=== PATIENT | female | born 1955 | race Caucasian/White ===

== ENCOUNTER → 2019-10-31 | Outpatient (CLI) | payer OTHER ==
[2019-10-31 10:47] LABS: Basophils # (A) 0.1 k/uL (0-0.2); Basophils % (A) 1 %; Eosinophils # (A) 0.2 k/uL (0-0.7); Eosinophils % (A) 4 %; HCT 42.6 % (34.0-46.0); HGB 13.5 gm/dL (11.4-16.0); Lymphocytes # (A) 1.6 k/uL (1.0-4.8); Lymphocytes % (A) 27 %; MCH 27.9 pg (25.0-35.0); MCHC 31.7 g/dL (31.0-37.0); MCV 87.9 fL (80.0-100.0); Mean Platelet Volume 7.1; Monocytes # (A) 0.4 k/uL (0-1.0); Monocytes % (A) 7 %; Neutrophils # (A) 3.6 k/uL (1.3-7.7); Neutrophils % (A) 60 %; Platelet Count 309 k/uL (150-450); RBC 4.85 m/uL (3.80-5.40); RDW 13.1 % (11.5-15.5)
[2019-10-31 10:57] LABS: INR 0.9 (<1.2); Prothrombin Time 9.7 sec (9.0-12.0)
[2019-10-31 11:12] LABS: Potassium 4.2 mmol/L (3.5-5.1)
== END | disposition home or self-care (01) ==
LOC: LABPAT 10:11
PROVIDERS: ATTEND Orthopaedic Surgery
DX: Z01.812 Encounter for preprocedural laboratory examination (principal)
CPT/HCPCS: 36415; 80051; 85025; 85610; 87070

== ENCOUNTER 2019-11-13 09:26 | Day surgery (SDC) | payer OTHER ==
[2019-11-12 08:38] VITALS: BMI 36.5
--- NOTE | 2019-11-12 11:03 | HP ---
HISTORY AND PHYSICAL CHIEF COMPLAINT: Right knee pain. 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 She is having pain with prolonged weightbearing and she notes the knee gives out. She notes intermittent swelling and stiffness. She has tried medications and an injection with only partial temporary relief. She notes her pain does limit her normal function and activities. PAST MEDICAL HISTORY: Significant for arthritis, hypertension, and depression. PAST SURGICAL HISTORY: Negative. CURRENT MEDICATIONS: 1. Metoprolol. 2. Zolpidem. 3. Losartan. ALLERGIES: SHE HAS ALLERGIES TO DEMEROL. FAMILY HISTORY: Significant for cancer. SOCIAL HISTORY: Negative for current tobacco or alcohol use. REVIEW OF SYSTEMS: Sixteen point review of systems otherwise reviewed and is noncontributory. PHYSICAL EXAMINATION: On examination, the patient is approximately 5 foot 8, 240 pounds of endomorphic habitus. HEENT exam is nonfocal. NECK: Supple. He has painless passive motion of the right hip. Straight leg raise is negative. Active motion right knee -8 to 105 degrees of flexion. She has a moderate effusion. She is tender about the medial joint line. Collaterals are stable, Mika is negative, John's is equivocal. Her distal neurovascular appears intact in the right lower extremity. Weightbearing notch lateral and Merchant views of the right knee obtained in the office show severe medial compartment narrowing. IMPRESSION: 1. Right knee severe medial compartment osteoarthrosis. 2. Obesity. RECOMMENDATIONS: I talked to the patient at length regarding her condition along with treatment options. At this point, she remains quite symptomatic despite conservative measures. After thorough discussion, she opts to proceed with surgery. We will plan to proceed with right total knee arthroplasty. Risks and benefits were discussed at length in layman's terms. We will institute DVT prophylaxis postoperatively. MMODL / IJN: [id number] /
[~2019-11-13 09:26] MED LIST: ACETAMINOPHEN TAB 500 MG TAB PO ONE; DEXAMETHASONE SOD PHOSPHATE 10 MG/ML 1 ML VIAL IV ONE; HYDROmorphone 0.5 MG/0.5 ML SYRINGE IVP PRN; MELOXICAM 7.5 MG TAB PO ONE; MIDAZOLAM 2 MG/2 ML VIAL IV PRN; ONDANSETRON 4 MG/2 ML VIAL IVP ONE; SCOPOLAMINE 1.5MG/72HR PATCH TRANSDERM ONE; TRANEXAMIC ACID 1,000 MG in SODIUM CHLORIDE 0.9% 100 ML IVPB ONE
[2019-11-13] MEDS ORDERED: fentaNYL (PF) 50 MCG/ML 2 ML AMP IVP ONE (10:15)
[2019-11-13] MEDS: LACTATED RINGERS 1,000 ML IV SCH (10:15)
[2019-11-13] MEDS ORDERED: SODIUM CHLORIDE 0.9% 100 ML BAG ONE (10:37)
[2019-11-13] MEDS ORDERED: fentaNYL (PF) 50 MCG/ML 2 ML AMP ONE (10:37)
[2019-11-13] MEDS ORDERED: PROPOFOL 10 MG/ML 20 ML VIAL IV ONE (10:37)
[2019-11-13] MEDS ORDERED: MIDAZOLAM 2 MG/2 ML VIAL ONE (10:37)
[2019-11-13] MEDS ORDERED: diphenhydrAMINE 50 MG/ML 1 ML VIAL ONE (10:37)
[2019-11-13] MEDS ORDERED: TRANEXAMIC ACID 1,000 MG/10 ML VIAL ONE (10:37)
[2019-11-13] MEDS ORDERED: ROPIVACAINE 0.2%-NS ON-Q PUMP 1,090 MG, EMPTY PAIN BALL 1 EACH MISCELLANE PRN (11:14)
--- NOTE | 2019-11-13 11:16 | P.ANPRN ---
Procedure Note - Anesthesia - Nerve Block Performed Right Adductor Canal Infusion Time Out Performed: Yes Date of Procedure: 11/13/19 Procedure Start Time: 10:40 Location of Patient: PreOp Indication: Requested by Surgeon Specifically requested for management of pain by DrRanda: Mono Garcia Sedation Type: Sedate with meaningful contact maintained Preparation: Sterile Prep Position: Supine Catheter Depth at Skin (cm): 10 Catheter: Indwelling Needle Types: Pajunk Needle Gauge: 18 Ultrasound used to visualize needle placement: Yes Ultrasound used to observe medication spread: Yes Injectate: 0.5% Ropivacaine (see comment for volume) (20 cc) Blood Aspirated: No Pain Paresthesia on Injection Noted: No Resistance on Injection: Normal Image Stored and Saved: Yes Events: Uneventful and Well Tolerated
[2019-11-13] MEDS: ROPIVACAINE 246.25 MG, EPINEPHrine 0.5 MG, KETOROLAC 30 MG, cloNIDine HCL/PF 80 MCG, WA... MISCELLANE ONE ×10 (11:21→11:35)
[2019-11-13] MEDS ORDERED: LACTATED RINGERS 1,000 ML IV ONE (11:34)
[2019-11-13] MEDS ORDERED: MAGNESIUM HYDROXIDE 2,400 MG/10 ML CUP PO PRN (12:26)
[2019-11-13] MEDS ORDERED: traMADol 50 MG TAB PO PRN (12:26)
[2019-11-13] MEDS ORDERED: ACETAMINOPHEN TAB 325 MG TAB PO PRN (12:26)
[2019-11-13] MEDS ORDERED: NALOXONE 0.4 MG/ML 1 ML VIAL IV PRN (12:26)
[2019-11-13] MEDS ORDERED: HYDROcodone/APAP 7.5-325MG 1 EACH TAB PO PRN ×2 (12:26→12:28)
[2019-11-13] MEDS ORDERED: ONDANSETRON 4 MG/2 ML VIAL IVP PRN (12:26)
--- NOTE | 2019-11-13 12:51 | P.OP ---
Date of Procedure: 11/13/19 Preoperative Diagnosis: Right knee severe tricompartmental osteoarthrosis Postoperative Diagnosis: Same Procedure(s) Performed: Right total knee arthroplastycementedcruciate retaining Implants: Depuy Attune size 6 narrow cemented femoral component, size 5 cemented tibial component, 9 mm articular surface, 35 mm parapatellar component. This was a cruciate retaining implant. Anesthesia: regional, local, spinal Surgeon: Mono Garcia Meeting Manager #1: Mikhail Valdes Estimated Blood Loss (ml): 50 Pathology: other (Bone fragments) Condition: stable Disposition: PACU Indications for Procedure: The patient's a 64-year-old female who presents with progressive right knee pain secondary to osteoarthrosis despite conservative measures. A discussion of the risks and benefits of operative intervention versus continued conservative measures was made with the patient. She opted to proceed with surgery. Operative risks to include infection, fracture, component loosening, neurovascular injury, DVT, component failure need for subsequent procedures was discussed. Informed consent was obtained. Operative Findings: As below Description of Procedure: The patient was brought to the operating room, and after induction of spinal anesthesia the right lower extremity was prepped and draped in a normal fashion. The tourniquet was inflated to 270 mmHg. A longitudinal incision extending 3 finger breaths above the superior pole of the patella extending to the medial aspect the tibial tubercle was then made. The skin and subcutaneous tissues were divided sharply. Electrocautery was used for hemostasis. A medial parapatellar arthrotomy was then performed. The medial soft tissues to include the superficial and deep portions of the medial collateral ligament as well as the medial hamstring tendons were elevated subperiosteally. The proximal medial tibia osteophytes were carefully removed. The patella was everted. The knee was flexed. A portion of the retropatellar fat pad was excised sharply. The anterior cruciate ligament was sacrificed. A starting hole was made in the distal femur 1 cm anterior to the posterior cruciate origin. An intramedullary femoral guide was gently inserted planning on 5 valgus distal cut with 9 mm distal resection. The cutting block was pinned in place. The distal cut was then made. The posterior referencing sizing guide was utilized. 3 of external rotation was built into the system and verified off the trans- epicondylar axis and the posterior condyles. I felt size 6 narrow was most appropriate. The cutting block was pinned in place. The anterior, posterior, and chamfer cuts were then made. The bone fragments were removed. A sulcus cut was then made with the appropriate guide. The trial size 6 narrow femoral component was then placed and was fully seated. There was good anterior to posterior and medial to lateral fit. The distal peg holes were then drilled. The trial component was then removed. Attention was then paid towards preparing the proximal tibia. An extra medullary guide was utilized in line with the tibial shaft and second metatarsal distally. A 7 posterior slope was planned. I planned on 2 mm resection from the medial compartment. The cutting block was pinned in place. The proximal tibial cut was then made. The bone was removed in one fragment. The remnants of the medial and lateral menisci were excised the capsule junction with electrocautery. The tibia sized most appropriately at size 5. The posterior osteophytes off the distal femur were carefully removed with a curved osteotome. The trial tibial and femoral components were placed along with a 9 millimeter articular surface. I was able to obtain full flexion and extension with good stability with varus and valgus stress. After several flexion and extension cycles, the tibial rotation was marked with electrocautery in line with the medial one third of the tibial tubercle. Attention was then paid towards preparing the patella. A patella reamer was utilized taking this down to 14 mm of bone stock. A good flush cut was made. The patella sized most appropriately at 35 millimeters. The peg holes were then drilled. The trial component was placed. The knee was taken through a range of motion. I had good patellofemoral tracking with no hands technique. The trial components were then removed. The tibia was prepared in the appropriate rotation with appropriate drill and keel punch. The flexion and extension gaps were checked and felt to be symmetric. The posterior soft tissues were injected with ropivacaine. The bony surfaces were prepared with pulsatile lavage and dried. The deep tibial component was then cemented in place and was fully seated. Excess cement was removed. The femoral component was cemented in place and was fully seated. Again excess cement was removed. The trial 9 millimeters surface was then inserted in the knee was put in full extension. The patella component was cemented in place. After the cement had sufficiently hardened, the knee was again taken through a range of motion. Again there was good stability in flexion and extension with varus and valgus stress. The trial articular surface was then removed. The final articular surface was placed and was impacted. Care was taken to avoid any soft tissue interposition. Pulsatile lavage was again utilized. The tourniquet was deflated with approximately 60 minutes total tourniquet time. There was minimal drainage therefore a deep drain was not placed. The medial parapatellar arthrotomy was then closed with #2 Ethibond suture. The subcutaneous tissues were reapproximated interrupted 2- 0 Vicryl sutures. The skin was reapproximated with 3-0 subarticular strata fix suture. Skin tape and adhesive was applied. A sterile dressing was applied. The patient was then awoken from sedation and transferred to recovery room in good condition. Blood loss was estimated at[] milliliters. No complications were incurred. Sponge and needle counts were correct at the end the case. Howard CASTILLO assisted during the major components this case to include exposure, bone resection, and implantation.
--- NOTE | 2019-11-13 13:16 | XR ---
EXAMINATION TYPE: XR knee limited RT DATE OF EXAM: 11/13/2019 COMPARISON: NONE HISTORY: 64-year-old female evaluation for postoperative abnormality and alignment TECHNIQUE: 2 views FINDINGS: Images show placement of right total knee arthroplasty. 2 distal femoral and proximal tibial componen ts of the prosthesis are well seated without periprosthetic fracture. Alignment grossly anatomic. Ant erior soft tissue swelling with scattered soft tissue air as well as intra-articular air compatible w ith recent operation. IMPRESSION: Uncomplicated postoperative appearance right total knee arthroplasty.
[2019-11-13] MEDS: HYDROmorphone 0.5 MG/0.5 ML SYRINGE IVP PRN ×2 (13:24→13:39)
[2019-11-13] MEDS ORDERED: ZOLPIDEM 5 MG TAB PO PRN (18:51)
[2019-11-13] MEDS ORDERED: SENNOSIDES-DOCUSATE SODIUM 1 EACH TAB PO SCH (21:00)
[2019-11-14] MEDS: LACTATED RINGERS 1,000 ML IV SCH (01:24)
[2019-11-14 07:06] VITALS: BP 129/80; PULSE 66; RESP 16; TEMP 97.8
[2019-11-14 08:17] LABS: Basophils % (A) 0 %; Eosinophils % (A) 0 %; HCT 35.7 % (34.0-46.0); HGB 11.4 gm/dL (11.4-16.0); Lymphocytes # (A) 1.1 k/uL (1.0-4.8); Lymphocytes % (A) 11 %; MCH 27.9 pg (25.0-35.0); MCV 87.1 fL (80.0-100.0); Mean Platelet Volume 7.4; Monocytes # (A) 0.6 k/uL (0-1.0); Monocytes % (A) 7 %; Neutrophils # (A) 7.4 k/uL (1.3-7.7); Neutrophils % (A) 80 %; Platelet Count 205 k/uL (150-450); RBC 4.09 m/uL (3.80-5.40); RDW 12.9 % (11.5-15.5); WBC 9.2 k/uL (3.8-10.6)
[2019-11-14] MEDS ORDERED: RIVAROXABAN 10 MG TAB PO SCH (09:00)
--- NOTE | 2019-11-14 10:37 | P.PN ---
Subjective Progress Note Date: 11/14/19 Principal diagnosis: status post right total knee arthroplasty Patient evaluated at bedside, she's resting in her hospital chair. Currently denies any chest pain or shortness of breath. She's ambulate well with therapy, she has not done discharge. Objective - Vital Signs Vital signs: Vital Signs Temp 97.8 F 11/14/19 07:00 Pulse 66 11/14/19 07:30 Resp 16 11/14/19 07:30 BP 129/80 11/14/19 07:00 Pulse Ox 96 11/14/19 07:00 Intake & Output 11/13/19 11/14/19 11/14/19 18:59 06:59 18:59 Intake Total 1600 350 Output Total 50 Balance 1550 350 Weight 110 kg Intake: IV 1600 Intake, IV Titration 350 Amount Lactated Ringers 1,000 ml 300 @ 50 mls/hr IV .Q20H DEE DEE Rx#:[id number] ceFAZolin 2 gm In Sodium 50 Chloride 0.9% 50 ml @ 100 mls/hr IVPB Q8H DEE DEE Rx#: [id number] Output: Estimated Blood Loss 50 Other: Voiding Method Toilet Toilet Toilet # Voids 1 - Exam Right lower extremity: Incision is clean, dry, and intact. The exofin fusion tape is in good condition. There is minimal soft tissue swelling and ecchymosis surrounding the medial and lateral aspects of the incision. Calf is soft, no tenderness with palpation. Plantar flexion, dorsiflexion, EHL, FHL are intact. Sensory exam to light touch throughout the extremity is intact, dorsal pedis pulses 2+. - Labs CBC & Chem 7: 11/14/19 07:11 Assessment and Plan Plan: Assessment: Postop day #1 status post right total knee arthroplasty Plan: Pain control, continue on oral medication, plan for discharge home on likely [place] and tramadol GI and DVT prophylaxis, Eliquis 2.5mg bid for 1 month Wound care instructions discussed Home physical therapy and nursing after discharge Medical recommendations Hopeful discharge home today Time with Patient: Less than 30
--- NOTE | 2019-11-14 12:39 | P.DS ---
Providers Date of admission: 11/13/2019 Expected date of discharge: 11/14/19 Attending physician: Mono Garcia Consults: 11/13/19 12:26 Consult Physician Routine Consulting Provider: Saulo Larsen Reason/Comments: medical management Do you want consulting provider notified?: Yes Primary care physician: Saulo Larsen Hospital Course: Date of admission: 11/13/2019 Date of discharge: 11/14/2019 Admission diagnosis: Status post right total knee arthroplasty Discharge diagnosis: Same Attending physician: Dr. Garcia Surgical procedures: Right total knee arthroplasty Brief history: Patient is a 64-year-old female with a history of with progressive primary right knee osteoarthritis. At this point patient has failed conservative treatment measures and has opted to proceed with a elective right total knee arthroplasty. Hospital course: Details of patient's surgery can be found in operative report. Patient tolerated the procedure well and was subsequently transported to orthopedic floor. Patient's orthopeidc and medical care was provided daily. Patient had daily laboratory tests performed for evaluation of overall blood counts. Patient had daily physical therapy to include strengthening range of motion as well as education with walker ambulation. Patient had daily CPM usage as part of their physical therapy program. Patient was treated with Xarelto for their postoperative DVT prophylaxis during their inpatient stay. Patient was noted to have a relatively uneventful postoperative course. Patient reported satisfactory pain control with oral pain medications by postoperative day 0. Patient showed satisfactory progress with physical therapy. Patient moved steadily through the program and had no difficulty meeting the goals by postoperative day 1. Given patient's otherwise satisfactory course and having met physical therapy goals, plan is to discharge patient home on postoperative day 1. Discharge condition/disposition: Patient will be discharged home in stable condition. Discharge medications: Instructions are given on resumption of patient's normal daily medications per primary care recommendation, in addition patient will be p rescribed [place] 7.5 mg/325 mg, tramadol 50 mg, Colace 100 mg, Eliquis 2.5mg. Discharge instructions: 1. Wound care and infection precautions, keep incision dry and covered while showering, no lotions, creams, moisturizers. No soaking, tubs, pools, hottubs. Do not scrub over the incision. 2. Weight-bear as tolerated with walker / cane until follow-up. 3. Ice and elevate when necessary. Do not exceed 20 minutes per hour with ice pack. 4. Utilize compression sleeve until seen at first follow up appointment. 5. Visiting nursing care. 6. Home physical therapy including home CPM. 7. Pain meds and anticoagulants per prescription. 8. Pain medication has potential to cause constipation. Increase oral fluid and fiber intake. Contact primary care provider if you have not had a bowel movement within 48 hours after discharge 9. No anti-inflammatory medication until discussed at first post operative visit, this including Motrin, Aleve, Mobic, Diclofenac. 10. Follow up in office at 2 weeks postop with Howard Valdes PA-C 11. Follow up with your primary care doctor 7-10 days after discharge. 12. Contact [facility] with any questions, . Procedures: right total knee arthroplasty Patient Condition at Discharge: Good Plan - Discharge Summary Discharge Rx Participant: Yes New Discharge Prescriptions: New Docusate [Colace] 100 mg PO DAILY #30 capsule Apixaban [Eliquis] 2.5 mg PO BID #60 tab HYDROcodone/APAP 7.5-325MG [[place] 7.5] 1 - 2 each PO Q6HR PRN #56 tab PRN Reason: Pain traMADol HCl [Ultram] 50 mg PO Q6H PRN #28 tab PRN Reason: Pain No Action Metoprolol Succinate (ER) [Toprol XL] 50 mg PO DAILY amLODIPine BESYLATE 5 mg PO BID Hydrochlorothiazide [Hydrodiuril] 12.5 mg PO DAILY Cholecalciferol [Vitamin D3 (25 Mcg = 1000 Iu)] 2,000 unit PO DAILY Magnesium Oxide [Mag-Ox] 400 mg PO DAILY Losartan Potassium [Cozaar] 100 mg PO DAILY Citalopram Hydrobromide [Citalopram HBr] 40 tab PO DAILY Zolpidem [Ambien] 5 mg PO HS PRN PRN Reason: Insomnia Discharge Medication List Metoprolol Succinate (ER) [Toprol XL] 50 mg PO DAILY 02/18/16 [History] Cholecalciferol [Vitamin D3 (25 Mcg = 1000 Iu)] 2,000 unit PO DAILY 11/12/19 [History] Hydrochlorothiazide [Hydrodiuril] 12.5 mg PO DAILY 11/12/19 [History] Losartan Potassium [Cozaar] 100 mg PO DAILY 11/12/19 [History] Magnesium Oxide [Mag-Ox] 400 mg PO DAILY 11/12/19 [History] amLODIPine BESYLATE 5 mg PO BID 11/12/19 [History] Citalopram Hydrobromide [Citalopram HBr] 40 tab PO DAILY 11/13/19 [History] Zolpidem [Ambien] 5 mg PO HS PRN 11/13/19 [History] Apixaban [Eliquis] 2.5 mg PO BID #60 tab 11/14/19 [Rx] Docusate [Colace] 100 mg PO DAILY #30 capsule 11/14/19 [Rx] HYDROcodone/APAP 7.5-325MG [[place] 7.5] 1 - 2 each PO Q6HR PRN #56 tab 11/14/19 [Rx] traMADol HCl [Ultram] 50 mg PO Q6H PRN #28 tab 11/14/19 [Rx] Follow up Appointment(s)/Referral(s): [facility],Equipment [NON-STAFF] - As Needed (walker and Continuous Passive Motion knee machine) [facility], [NON-STAFF] - As Needed Mikhail Valdes PAC [PHYSICIAN TRUCK LOADER] - 11/28/19 3:30 pm Activity/Diet/Wound Care/Special Instructions: Orthopedic Discharge Instructions: 1. Wound care and infection precautions, keep incision dry and covered while showering, no lotions, creams, moisturizers. No soaking, pools, hot tubs. Do not scrub over incision. 2. Weight-bear as tolerated with walker / cane until follow-up. 3. Ice and elevate when necessary. Do not exceed 20 minutes per hour with ice pack. 4. Utilize compression sleeve until seen at first follow up appointment. 5. Pain meds and anticoagulants per prescription. 6. Pain medication has potential to cause constipation. Increase oral fluid and fiber intake. Contact primary care provider if you have not had a bowel movement within 48 hours after discharge. 7. No anti-inflammatory medication until discussed at first post operative visit, this including Motrin, Aleve, Mobic, Diclofenac. 8. Follow up in office at 2 weeks postop with Howard Valdes PA-C 9. Follow up with your primary care doctor 7-10 days after discharge. 10. Contact [facility] with any questions, . Discharge Disposition: HOME WITH HOME HEALTH SERVICES
--- NOTE | 2019-11-14 12:56 | P.PN ---
Progress Note - Text Anesthesia POD 1. 06. Patient is status post right TKR under spinal anesthesia with a right adductor canal catheter placed for postoperative pain relief. With ropivacaine 0.2% running at 8 cc's per hour, the patient's VAS is (1, 3). Catheter site is clean dry and intact.
--- NOTE | 2019-11-14 14:22 | P.CONS ---
History of Present Illness - Reason for Consult Consult date: 11/14/19 Medical management - History of Present Illness This is a 64-year-old female patient of Dr. Larsen with his history of hypertension, obstructive sleep apnea, osteoarthritis. Patient has been brought in under the care of Dr. Garcia status post right total knee arthroplasty, postoperative day #1. Patient has had no postop complications. She is on eliquis for DVT prophylaxis. Patient denies having any nausea or vomiting. She is passing gas without bowel movement she is anticipating discharge home later today. Review of Systems Constitutional: Denies chills, Denies fatigue, Denies fever, Denies lethargy, Denies malaise, Denies poor appetite, Denies weakness Eyes: denies blurred vision, denies pain Ears, nose, mouth and throat: Denies dysphagia, Denies headache, Denies nasal congestion, Denies nasal discharge, Denies sore throat, Denies vertigo Cardiovascular: Denies chest pain, Denies dyspnea on exertion, Denies irregular heart beat, Denies leg edema, Denies lightheadedness, Denies shortness of breath, Denies syncope Respiratory: Denies cough, Denies cough with sputum, Denies dyspnea, Denies excessive sputum, Denies hemoptysis, Denies home oxygen, Denies wheezing Gastrointestinal: Denies abdominal pain, Denies constipation, Denies diarrhea, Denies nausea, Denies vomiting Genitourinary: Denies dysuria, Denies hematuria, Denies urgency, Denies urinary frequency Musculoskeletal: Denies frequent falls, Denies gait dysfunction, Denies muscle weakness, Denies myalgias Integumentary: Denies pruritus, Denies rash Neurological: Denies change in mentation, Denies change in speech, Denies gait dysfunction, Denies numbness, Denies weakness Psychiatric: Denies anxiety, Denies depression Endocrine: Denies fatigue, Denies weight change Past Medical History Past Medical History: Cancer, Chest Pain / Angina, Hypertension, Osteoarthritis (OA), Sleep Apnea/CPAP/BIPAP Additional Past Medical History / Comment(s): HX SKIN CANCER, SLEEP APNEA-IN PROCESS OF GETTING MACHINE., OCCASIONAL BOILS IN VAGINAL AREA. History of Any Multi-Drug Resistant Organisms: None Reported Past Surgical History: Heart Catheterization, Tubal Ligation Additional Past Surgical History / Comment(s): laparoscopy Past Anesthesia/Blood Transfusion Reactions: No Reported Reaction, Family History of Problems w/ Anesthesia Additional Past Anesthesia/Blood Transfusion Reaction / Comm: FATHER HAS HALLUCINATIONS Past Psychological History: Anxiety, Depression Smoking Status: Never smoker Past Alcohol Use History: Rare Additional Past Alcohol Use History / Comment(s): Patient is a lifelong nonsmoker, no illicit drug use, occasional alcohol use. 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 Past Drug Use History: None Reported - Past Family History Mother Family Medical History: No Reported History Additional Family Medical History / Comment(s): Mother is alive at age 84 with history of hypertension. Brother(s) Family Medical History: Cancer Additional Family Medical History / Comment(s): Patient has 3 brothers and one at age 58 from bladder cancer. Father Additional Family Medical History / Comment(s): Father is alive at age 89 with history of coronary artery disease, hypertension, aortic valve replacement, COPD Sister(s) Additional Family Medical History / Comment(s): Patient has 2 sisters with no major medical problems. Patient is one son and one daughter with no major medical problems. Medications and Allergies Home Medications Medication Instructions Recorded Confirmed Type Metoprolol Succinate (ER) [Toprol 50 mg PO DAILY 02/18/16 11/13/19 History XL] Cholecalciferol [Vitamin D3 (25 2,000 unit PO DAILY 11/12/19 11/12/19 History Mcg = 1000 Iu)] Hydrochlorothiazide [Hydrodiuril] 12.5 mg PO DAILY 11/12/19 11/12/19 History Losartan Potassium [Cozaar] 100 mg PO DAILY 11/12/19 11/13/19 History Magnesium Oxide [Mag-Ox] 400 mg PO DAILY 11/12/19 11/12/19 History amLODIPine BESYLATE 5 mg PO BID 11/12/19 11/13/19 History Citalopram Hydrobromide 40 tab PO DAILY 11/13/19 11/13/19 History [Citalopram HBr] Zolpidem [Ambien] 5 mg PO HS PRN 11/13/19 11/13/19 History Apixaban [Eliquis] 2.5 mg PO BID #60 tab 11/14/19 Rx Docusate [Colace] 100 mg PO DAILY #30 capsule 11/14/19 Rx HYDROcodone/APAP 7.5-325MG [Yellow Jacket 1 - 2 each PO Q6HR PRN #56 tab 11/14/19 Rx 7.5] traMADol HCl [Ultram] 50 mg PO Q6H PRN #28 tab 11/14/19 Rx Allergies Allergy/AdvReac Type Severity Reaction Status Date / Time meperidine HCl [From Demerol] AdvReac Nausea & Verified 11/12/19 08:08 Vomiting Physical Exam Vitals: Vital Signs Temp Pulse Resp BP Pulse Ox 11/14/19 07:30 66 16 11/14/19 07:00 97.8 F 66 16 129/80 96 11/14/19 02:51 98.1 F 71 17 128/79 96 11/14/19 00:00 18 11/13/19 18:47 98.3 F 68 18 115/70 92 L 11/13/19 15:30 16 11/13/19 15:00 97.8 F 78 16 110/73 92 L 11/13/19 14:55 75 111/70 91 L 11/13/19 14:40 77 113/73 94 L 11/13/19 14:25 97.8 F 78 16 110/73 92 L 11/13/19 14:01 16 110/73 93 L 11/13/19 13:50 80 16 109/55 94 L 11/13/19 13:35 81 16 123/63 94 L 11/13/19 13:20 79 16 127/61 92 L 11/13/19 13:05 81 16 127/60 98 11/13/19 12:50 83 16 142/68 95 11/13/19 10:00 98.0 F 96 16 148/67 93 L Intake and Output 11/13/19 11/14/19 11/14/19 22:59 06:59 14:59 Intake Total 350 Balance 350 Intake: Intake, IV Titration 350 Amount Lactated Ringers 1,000 ml 300 @ 50 mls/hr IV .Q20H [facility] Rx#:[id number] ceFAZolin 2 gm In Sodium 50 Chloride 0.9% 50 ml @ 100 mls/hr IVPB Q8H [facility] Rx#: [id number] Other: Voiding Method Toilet Toilet Toilet # Voids 1 Gen: This is a 64-year-old female. Patient is resting a recliner and appears to be comfortable and in no acute distress. HEENT: Head is atraumatic, normocephalic. Pupils equal, round. Sclerae is anicteric. NECK: Supple. No JVD. No lymphadenopathy. No thyromegaly. LUNGS: Clear to auscultation. No wheezes or rhonchi. No intercostal retractions. HEART: Regular rate and rhythm. No murmur. ABDOMEN: Soft. Bowel sounds are present. No masses. No tenderness. EXTREMITIES: No pedal edema. No calf tenderness. Small dressing in place to the right knee with no break through bleeding or drainage. Dorsalis pedis +2 bilaterally. NEUROLOGICAL: Patient is awake, alert and oriented x3. Cranial nerves 2 through 12 are grossly intact. Results CBC & Chem 7: 11/14/19 07:11 Assessment and Plan Plan: 1. Osteoarthritis status post right total knee arthroplasty, postop day #1. Continue DVT prophylaxis, pain control, PT and OT, incentive spirometry to reduce incidence of atelectasis and hospital-acquired pneumonia. 2. Hypertension. Continue amlodipine 5 mg twice daily, losartan 100 mg daily, Toprol-XL 50 mg daily. 3. Obstructive sleep apnea, continue CPAP. 4. Recurrent depression. Continue citalopram 40 mg daily. Discharge plan: [facility] Impression and plan of care have been directed as dictated by the signing physician. Charleen Stein nurse practitioner acting as scribe for signing physician.
== END 2019-11-14 14:02 | disposition home health service (06) ==
LOC: OR 09:26 → 4SSUR 13:53 → OR 11-14 14:02
PROVIDERS: ATTEND Orthopaedic Surgery
DX: M17.11 Unilateral primary osteoarthritis, right knee (principal); M25.761 Osteophyte, right knee; I10 Essential (primary) hypertension; F32.9 Major depressive disorder, single episode, unspecified; Z79.899 Other long term (current) drug therapy; Z88.5 Allergy status to narcotic agent; Z80.9 Family history of malignant neoplasm, unspecified; E66.9 Obesity, unspecified; Z68.36 Body mass index [BMI] 36.0-36.9, adult; G47.33 Obstructive sleep apnea (adult) (pediatric); Z85.828 Personal history of other malignant neoplasm of skin
CPT/HCPCS: 97161; 64448; 76942; 85025; 88300; 73560; 27447; C1713; C1776; J2250; J0171; J1200; J1100; J0690 ×2; J2405; J3010; J1885; J2795 ×2; J2704; J0735; J1170